=== PATIENT | male | born 1975 | race Caucasian/White ===

== ENCOUNTER 2016-10-22 17:01 | Emergency (ER) | payer OTHER ==
[~2016-10-22 17:01] MED LIST: HYDROCORTISONE30 G2 TOP
[2016-10-22] MEDS ORDERED: NO MEDICATIONS (17:05)
== END 2016-10-22 19:01 | disposition home or self-care (01) ==
LOC: SED 17:01
DX: S60.414A Abrasion of right ring finger, initial encounter (principal); X58.XXXA Exposure to other specified factors, initial encounter; Y92.009 Unspecified place in unspecified non-institutional (private) residence as the place of occurrence of the external cause
CPT/HCPCS: 99283